=== PATIENT | male | born 1960 | race Caucasian/White ===

== ENCOUNTER 2025-03-03 19:32 | Emergency (ER) | payer OTHER, SELFPAY ==
[2025-03-03 19:35] VITALS: BP 123/74
[2025-03-03 19:57] LABS: Hematocrit 39.7 % (39.0-52.0); Hemoglobin 13.6 g/dL (13.0-18.0); Mean Corp Hgb Conc. 34.3 g/dL (33.0-37.0); Mean Corpuscular Volume 95.0 fL (80.0-94.0); Nucleated Red Blood Cells % 0 % (-); Platelet Count 216 10^3/uL (130-400); Red Cell Dist. Width 12.8 % (11.5-14.5)
[2025-03-03 19:57] LABS: Urine Character Clear (Clear)
[2025-03-03 20:08] LABS: ALT (SGPT) < 10 U/L (0-50); AST (SGOT) 33 U/L (17-59); Albumin 4.8 g/dl (3.5-5.0); Alkaline Phosphatase 49 U/L (38-126); Blood Urea Nitrogen 20 mg/dl (9-20); Calcium 9.6 mg/dl (8.4-10.2); Carbon Dioxide 31 mmol/L (22-30); Chloride 99 mmol/L (98-107); Glucose 98 mg/dl (70-99); Potassium 3.7 mmol/L (3.5-5.1); Sodium 138 mmol/L (135-145); Total Protein 7.4 g/dl (6.3-8.2); eGFR > 60.00
[2025-03-03 20:49] LABS: Urine Squamous Cell 0-2 /LPF (Few); Urine White Cell 21-25 /HPF (0-5)
[2025-03-03 22:26] VITALS: BMI 21.8
[2025-03-03 22:27] VITALS: BP 122/75
[2025-03-03 23:00] VITALS: BP 123/80
--- NOTE | 2025-03-03 23:39 | ED.GENMED ---
History of Present Illness
<Katie Gallagher PA-C - Last Filed: 03/04/25 12:24>
General
Chief Complaint: Male Genito-Urinary Symptoms
Source: patient
Exam Limitations: none
Time Seen by Provider: 03/03/25 23:22
Nursing documentation reviewed up to this point in time: agreed with
History of Present Illness
History of Present Illness:
Patient is a 64-year-old male with history of hypertension, prostate CA s/p prostatectomy who presents to the emergency department with dysuria and hematuria started today. Patient reports that when he woke up this morning he noticed significant
urinary hesitancy and states that he was only able to urinate a very little bit despite a strong sense of urinary urgency. He also reports dysuria and lower abdominal discomfort as well as hematuria.
Patient states that he has felt overall 'sluggish 'over the past few days. He denies any fever or chills. No sharp abdominal or back pain. He did have 1 episode of diarrhea yesterday.
Patient reports no history of similar symptoms. He did have his prostate removed back in 2017 after being diagnosed with prostate cancer.
He is currently sexually active with 1 partner. He does not have any current concern for an STD.
Review of Systems
<Katie Gallagher PA-C - Last Filed: 03/04/25 12:24>
Review of Systems
Allergies reviewed?: Yes
All Other Systems: ROS reviewed and negative except as documented in HPI and ROS
Phy Exam
<Katie Gallagher PA-C - Last Filed: 03/04/25 12:24>
Physical Exam
Physical Exam:
Vitals: Patient's vital signs are stable. Afebrile
General: Patient is well appearing, no acute distress
Skin: Warm and dry, no rashes or lesions
Head: Normocephalic, atraumatic
Eyes: Sclera nonicteric.
Throat: Protecting airway
Neck: Normal ROM, no cervical spine tenderness, no meningismus
Cardiac: Regular rate and rhythm, no murmurs.
Pulm: Normal respiratory effort, no wheezes, rales, rhonchi heard on exam
Abdomen: Abdomen soft. No focal reproducible tenderness. No CVA tenderness.
Extremities: No evidence of cyanosis or edema
Neuro: AAOx3. Grossly intact.
Psychiatric: Normal affect.
Course
<Katie Gallagher PA-C - Last Filed: 03/04/25 12:24>
Orders/Labs/Results
Orders:
Orders
03/03/25 19:44
Complete Blood Count/With Diff Urgent
Comprehensive Metabolic Panel Urgent
03/03/25 19:46
Urinalysis Reflex To Culture Urgent
Date Specimen was Collected: 03/03/25
Time Specimen was Collected: 19:40
Urine Microscopic Reflex Cult Urgent
Urine Culture Urgent
[facility] Source: U
Specimen Description:
Date Specimen was Collected: 03/03/25
Time Specimen was Collected: 19:40
03/03/25 23:36
Bladder Scan- Treatment ONCE
03/04/25
CT Abd/pelvis Wo Iv Cont Urgent
Reason For Exam: lower abdominal pain, hematuria
03/04/25 02:35
Cefuroxime Axetil [Ceftin] 500 mg PO NOW STA
Abnormal Lab Results
03/03/25 03/03/25
19:44 19:46
WBC 14.3 H 10^3/uL
(4.8-10.8)
RBC 4.18 L 10^6/uL
(4.70-6.10)
MCV 95.0 H fL
(80.0-94.0)
MCH 32.5 H pg
(27.0-31.0)
Abs Immat Gran (auto) 0.2 H 10^3/uL
(0-0.05)
Absolute Neuts (auto) 11.3 H 10^3/uL
(1.4-6.5)
Absolute Monos (auto) 1.1 H 10^3/uL
(0.1-0.6)
Immature Gran % 1.7 H %
(0-0.5)
Neutrophils % 79.3 H %
(42.2-75.2)
Lymphocytes % 10.9 L %
(20.5-51.1)
Carbon Dioxide 31 H mmol/L
(22-30)
Ur Occult Blood Reflex 4+ A
(Negative)
Leukocyte Esterase Rfl 3+ A
(Negative)
Urine RBC 3-6 A /HPF
(0-2)
Urine WBC (Reflex) 21-25 A /HPF
(0-5)
Urine Bacteria (Reflex) Moderate A
(Negative)
03/03/25 19:44
03/03/25 19:44
Vital Signs
Initial and Last Documented VS:
Initial Vital Signs
Temp Pulse Resp BP Pulse Ox
98.1 F 67 18 123/74 98
03/03/25 19:35 03/03/25 19:35 03/03/25 19:35 03/03/25 19:35 03/03/25 19:35
Last Documented Vital Signs
Temp Pulse Resp BP Pulse Ox
98.2 F 68 18 118/65 99
03/03/25 23:16 03/04/25 02:00 03/04/25 02:00 03/04/25 02:00 03/04/25 02:00
<Delfino Singleton Jr., PA-C - Last Filed: 03/07/25 07:53>
Orders/Labs/Results
Orders:
Orders
03/03/25 19:44
Complete Blood Count/With Diff Urgent
Comprehensive Metabolic Panel Urgent
03/03/25 19:46
Urinalysis Reflex To Culture Urgent
Date Specimen was Collected: 03/03/25
Time Specimen was Collected: 19:40
Urine Microscopic Reflex Cult Urgent
Urine Culture Urgent
[facility] Source: U
Specimen Description:
Date Specimen was Collected: 03/03/25
Time Specimen was Collected: 19:40
03/03/25 23:36
Bladder Scan- Treatment ONCE
03/04/25
CT Abd/pelvis Wo Iv Cont Urgent
Reason For Exam: lower abdominal pain, hematuria
03/04/25 02:35
Cefuroxime Axetil [Ceftin] 500 mg PO NOW STA
Abnormal Lab Results
03/03/25 03/03/25
19:44 19:46
WBC 14.3 H 10^3/uL
(4.8-10.8)
RBC 4.18 L 10^6/uL
(4.70-6.10)
MCV 95.0 H fL
(80.0-94.0)
MCH 32.5 H pg
(27.0-31.0)
Abs Immat Gran (auto) 0.2 H 10^3/uL
(0-0.05)
Absolute Neuts (auto) 11.3 H 10^3/uL
(1.4-6.5)
Absolute Monos (auto) 1.1 H 10^3/uL
(0.1-0.6)
Immature Gran % 1.7 H %
(0-0.5)
Neutrophils % 79.3 H %
(42.2-75.2)
Lymphocytes % 10.9 L %
(20.5-51.1)
Carbon Dioxide 31 H mmol/L
(22-30)
Ur Occult Blood Reflex 4+ A
(Negative)
Leukocyte Esterase Rfl 3+ A
(Negative)
Urine RBC 3-6 A /HPF
(0-2)
Urine WBC (Reflex) 21-25 A /HPF
(0-5)
Urine Bacteria (Reflex) Moderate A
(Negative)
03/03/25 19:44
03/03/25 19:44
Vital Signs
Initial and Last Documented VS:
Initial Vital Signs
Temp Pulse Resp BP Pulse Ox
98.1 F 67 18 123/74 98
03/03/25 19:35 03/03/25 19:35 03/03/25 19:35 03/03/25 19:35 03/03/25 19:35
Last Documented Vital Signs
Temp Pulse Resp BP Pulse Ox
98.2 F 68 18 118/65 99
03/03/25 23:16 03/04/25 02:00 03/04/25 02:00 03/04/25 02:00 03/04/25 02:00
<Katie Gallagher PA-C - Last Filed: 03/04/25 12:24>
MDM/Problems Addressed
Differential Diagnosis Includes:
Not limited to: Cystitis, pyelonephritis, renal colic, diverticulitis,
MDM/Problems Addressed:
64 year old male presenting with 1 day of urinary symptoms including dysuria, hematuria, and urinary hesitancy. No fevers, vomiting, or flank pain. No concern for STD at this time. Vitals stable. Exam as above. Patient well appearing, nontoxic.
Abdomen benign. Labs were sent prior to my evaluation significant for a leukocytosis of 14.3. Urine suggestive of infection.
Bladder scan reveals no evidence of urinary retention. Will check noncontrast CT scan to r/o obstructing stone.
Update: CT shows findings consistent with cystitis without evidence of obstructing stone. Patient remains well and nontoxic appearing, tolerating PO intake. Do not feel admission indicated. Will discharge on PO abx and instruct very strict return
precautions. He will follow-up with PCP and urology. Patient comfortable with plan.
Chronic conditions affecting care:
History of prostate CA s/p prostatectomy
Acute Exacerbation and/or Progression of Chronic Illness:
N/A
<Katie Gallagher PA-C - Last Filed: 03/04/25 12:24>
*Radiology
Radiology exam reviewed: radiology read reviewed
*Pulse Oximetry
SaO2: 98
Oxygen Mode of Delivery: Room air
Patient hypoxic: no
*EKG
Interpreted by ED Provider?: NA
*Chair Interpretation
Rate: Chair- N/A
*Critical Care Note
Total Time (30-74mins, 75-104mins- exclusive of procedures): Not Applicable
<Delfino Singleton Jr., PA-C - Last Filed: 03/07/25 07:53>
Update Note
Update Note:
Patient was contacted regarding urine culture. Has intermediate sensitivity to cefazolin but is susceptible to third-generation and on. Patient claimed that her symptoms are now resolved considering this no change in antibiotic at this time.
ED Attending Note
<Katie Gallagher PA-C - Last Filed: 03/04/25 12:24>
-
Portions of this chart may have been created with voice recognition software.� Occasional wrong word or��sound alike� substitutions may have occurred due to the inherent limitations of voice recognition software.
Discharge Plan
Departure
Patient Disposition: Home (Routine Discharge)
Date of Disposition: 03/04/25
Time of Disposition: 02:23
Patient with high blood pressure during this ER visit?: No
Condition: Good
Discharge Problem:
Acute UTI
Instructions: Blood in the Urine (Hematuria), Adult (DC), Urinary tract infection in adults - ED discharge instructions
Prescriptions:
New
cefuroxime axetil 500 mg tablet
500 mg PO BID 7 Days Qty: 14 0RF
phenazopyridine [Pyridium] 200 mg tablet
200 mg PO PC PRN (Reason: Pain) Qty: 6 0RF
Referrals:
Buddy Dunbar DO [Family Provider]
Activity Restrictions/Additional Instructions:
RETURN TO THE EMERGENCY DEPARTMENT ANY FEVER, CHILLS, ABDOMINAL PAIN/BACK PAIN, VOMITING, PERSISTENT DYSURIA OR INABILITY TO URINATE, WORSENING OF CURRENT SYMPTOMS, OR ANY OTHER CONCERNS
- As discussed�your urine showed evidence of urinary tract infection as well as your CT scan. Your white blood cell count was elevated in the emergency department.
- A prescription for antibiotic has been sent to your pharmacy. Please take this twice a day for the next week. In addition�a prescription for Pyridium has been sent to your pharmacy which you as needed for burning with urination.
-There was a possible cyst or lesion noted on your right kidney. Please have this further evaluated as needed with primary care/urology
- It is important stay well-hydrated.
- Please follow-up with your primary care provider and urology for further evaluation/management to ensure that your symptoms are improving
Monitor your symptoms closely and return to the emergency department with any acute worsening/new symptoms or any other concerns
Interventions
Interventions:
*Risk Screen - Suicide Last Done: 03/03/25 19:37
*General Assessment Last Done: 03/03/25 19:37
*Neglect/Abuse Screening Last Done: 03/03/25 19:37
*ED- Fall Risk Assessment Last Done: 03/03/25 22:23
*ED COVID-19 Vaccine History Last Done: 03/03/25 19:37
*Nursing Disposition Last Done: 03/04/25 02:55
ED-Male Genitourinary Assessment Last Done: 03/03/25 23:23
Discharge Date and Time
Discharge Date/Time: 03/04/25 02:57
Print Language: CZECH
[2025-03-04] VITALS: BP 118/84
[2025-03-04 01:00] VITALS: BP 123/75
[2025-03-04 02:00] VITALS: BP 118/65
[2025-03-04] MEDS: CEFTIN 500 MG PO (02:58)
== END 2025-03-04 02:57 | disposition home or self-care (01) ==
LOC: EMR 19:32
PROVIDERS: Student in an Organized Health Care Education/Training Program; EMERGENCY PHYSICIAN Emergency Medicine; FAMILY PHYSICIAN Family Medicine
DX: N39.0 Urinary tract infection, site not specified (principal); I10 Essential (primary) hypertension; Z85.46 Personal history of malignant neoplasm of prostate; Z90.79 Acquired absence of other genital organ(s)
CPT/HCPCS: 99284; 74176; 80053; 81003; 81015; 85025; 87077; 87086; 87186